=== PATIENT | female | born 1950 | race Caucasian/White ===

== ENCOUNTER 2023-09-26 13:59 | Emergency (ER) | payer OTHER, BC ==
[2023-09-26 14:06] VITALS: RESP 17; TEMP 99.1; BMI 28.8
[2023-09-26 14:25] VITALS: BP 151/78
[2023-09-26] MEDS ORDERED: MECLIZINE HCL 25 MG TABLET (FP) ONE (14:48)
[2023-09-26] MEDS ORDERED: ACETAMINOPHEN INJECTION 100 ML IVPB ONE (14:48)
[2023-09-26 15:02] LABS: HEMATOCRIT 37.9 % (32.4-45.2); HEMOGLOBIN 12.9 G/dL (10.7-15.3); MCH 29.1 pg (25.7-33.7); MCHC 33.9 g/dl (32.0-36.0); MEAN CELL VOLUME 85.8 fl (80-96); MEAN PLT VOLUME 8.5 fl (7.5-11.1); PLATELET COUNT 292.5 10^3/uL (134-434); RBC 4.42 10^6/uL (3.60-5.2); RDW 13.9 % (11.6-15.6); WHITE BLOOD COUNT 7.2 10^3/uL (4.0-10.8)
[2023-09-26] MEDS: SODIUM CHLORIDE 0.9% 1000 ML INFUS.BAG IV ONE (15:08)
[2023-09-26] MEDS: MECLIZINE HCL 25 MG TABLET (FP) PO ONE (15:10)
[2023-09-26] MEDS: ACETAMINOPHEN 1000 MG/100 ML BAG IVPB ONE (15:10)
[2023-09-26 15:14] LABS: ALBUMIN 4.2 g/dl (3.4-5.0); BILIRUBIN,TOTAL 0.3 mg/dl (0.2-1); CALCIUM 9.5 mg/dl (8.5-10.1); CREATININE 0.9 mg/dl (0.6-1.3); POTASSIUM 4.3 mmol/L (3.5-5.1); TOT PROT 7.2 g/dl (6.4-8.2)
[2023-09-26 17:10] VITALS: PULSE 78
== END 2023-09-26 16:43 | disposition home or self-care (01) ==
LOC: FER 13:59
PROC: 3E033NZ Introduction of Analgesics, Hypnotics, Sedatives into Peripheral Vein, Percutaneous Approach (ICD-10-PCS; principal; 2023-09-26)
PROC: 3E033GC Introduction of Other Therapeutic Substance into Peripheral Vein, Percutaneous Approach (ICD-10-PCS; 2023-09-26)
DX: R42 Dizziness and giddiness (principal)
CPT/HCPCS: 36415; 70450-TC; 80053; 81003; 84484; 85027; 87086; 93005; 96374; 96375; 99285-25; J0131